=== PATIENT | female | born 1995 | race Caucasian/White ===

== ENCOUNTER 2024-04-17 10:55 | Emergency (ER) | payer OTHER ==
[~2024-04-17] VITALS: Ht 162.6 cm; Wt 63.5 kg
[2024-04-17] MEDS ORDERED: HYDR30CR79 TP (11:41)
[2024-04-17 11:49] VITALS: BP 144/93; TEMP 98.3; O2SAT 95
== END 2024-04-17 11:49 | disposition home or self-care (01) ==
LOC: ER 11:00
DX: K64.9 Unspecified hemorrhoids (principal); F41.9 Anxiety disorder, unspecified; Z88.8 Allergy status to other drugs, medicaments and biological substances; Z90.12 Acquired absence of left breast and nipple; Z90.89 Acquired absence of other organs; Z60.2 Problems related to living alone

== ENCOUNTER 2025-08-08 14:11 | Emergency (ER) | payer OTHER ==
[~2025-08-08] VITALS: Ht 157.5 cm; Wt 59.0 kg
[~2025-08-08 14:11] MED LIST: HYDR30CR79 TP
[2025-08-08 15:23] LABS: PLATELET COUNT (AUTO) 189 K/uL (150-450); RED BLOOD CELL COUNT(AUTO) 4.24 MIL/uL (4.0-5.2); RED CELL DISTRIBUTION WIDTH 13.3 % (11.5-15.0); WHITE BLOOD COUNT (AUTO) 8.3 K/uL (4.3-11.0)
[2025-08-08 15:35] LABS: CALCIUM, SERUM 8.8 mg/dL (8.5-10.1); CREATININE 0.8 mg/dL (0.6-1.3); SODIUM SERUM 139.0 mmol/L (136-145); UREA NITROGEN, BLOOD 14.0 mg/dL (7-18)
[2025-08-08 15:47] LABS: PREGNANCY TEST SERUM QUAN 0.0 mIU/mL (0-6)
[2025-08-08 16:14] LABS: APPEARANCE,URINE SLIGHTLY CLOUDY (CLEAR); BLOOD, URINE 2+ Ery/uL (NEGATIVE); LEUKOCYTE ESTERASE ,URINE NEGATIVE (NEGATIVE); NITRITE, URINE NEGATIVE (NEGATIVE); UGLUCOSE NEGATIVE (NEGATIVE)
[2025-08-08 16:56] LABS: ADD URINE CULTURE YES; SQUAMOUS EPITHELIAL CELL,UR Moderate /HPF (None Seen)
[2025-08-08 17:15] VITALS: BP 130/87; TEMP 98.7; O2SAT 99
== END 2025-08-08 17:16 | disposition home or self-care (01) ==
LOC: ER 14:16
DX: N93.9 Abnormal uterine and vaginal bleeding, unspecified (principal); F17.200 Nicotine dependence, unspecified, uncomplicated; F17.210 Nicotine dependence, cigarettes, uncomplicated; Z88.5 Allergy status to narcotic agent
CPT/HCPCS: 36415; 76856-TC; 80048-TC; 81001; 84702-TC; 85025-TC; 87086-TC